=== PATIENT | female | born 1990 | race Caucasian/White ===

== ENCOUNTER 2016-06-30 11:13 | Outpatient (CLI) | payer OTHER ==
[~2016-06-30] VITALS: Ht 160 cm; Wt 51.3 kg
[~2016-06-30 11:13] MED LIST: FERGON324 MG PO; IBUPROFEN800 MG PO; MOTRIN800 MG PO; NORCO 7.5/321 TABLET PO; PHENERGAN25 MG PR; PRENATAL TABLE1 EAC3 PO; PROMETHAZINE HC25 M1 PO; VENTOLIN HFA18 GM IH; ZYRTEC10 M2 PO
[2016-06-30 13:02] LABS: HEMATOCRIT 29.5 % (36.0-46.0); MCH 30.3 PG (29.0-34.0); MCHC 34.9 G/DL (30.0-36.0); MCV 86.8 FL (83-99); MEAN PLAT.VOLUME 9.5 uM^3 (9.5-12.4); PLATELET COUNT 219 K/uL (156-360); RBC DIS.WIDTH-CV 13.2 % (11.8-14.6); RBC DIS.WIDTH-SD 41.5 % (39-53); WHITE BLOOD COUNT 14.4 K/uL (4.1-10.2)
[2016-06-30 13:04] LABS: CHLORIDE 104 mEq/L (99-109); POTASSIUM 3.5 mEq/L (3.7-5.4); SODIUM 133 mEq/L (136-147)
[2016-06-30 13:06] LABS: GLUCOSE 98 mg/dL (70-99)
[2016-06-30 13:07] LABS: ANION GAP 11 MEQ/L (2-14)
[2016-06-30 13:08] LABS: TOTAL BILIRUBIN 0.6 mg/dL (0.0-1.0)
[2016-06-30 13:09] LABS: ALKALINE PHOSPHATASE 102 IU/L (3-129)
[2016-06-30 13:10] LABS: GFR ESTIMATE (CALCULATED) > 59 mL/min/
[2016-06-30 13:11] LABS: UREA NITROGEN (BUN) 4 mg/dL (9-23)
[2016-06-30 13:35] LABS: QUANTITATIVE HCG 22663.6 MIU/ML
[2016-06-30 14:34] LABS: ADD MIUA? YES; BILIRUBIN NEGATIVE; BLOOD NEGATIVE; COLOR YELLOW ((YELLOW)); GLUCOSE (STRIP) NEGATIVE; KETONES NEGATIVE; LEUKOCYTES LARGE; NITRITE POSITIVE; PROTEIN (STRIP) 30
[2016-06-30 14:55] LABS: CASTS NONE SEEN /LPF; EPITHELIAL CELLS 4+ /HPF; MUCUS NONE SEEN /LPF
[2016-06-30 14:56] LABS: BACTERIA 4+ /HPF; RED BLOOD CELLS NONE SEEN /HPF (0-5); UCUL ADDED? YES; WHITE BLOOD CELLS TNTC /HPF (0-5)
[2016-06-30 17:05] VITALS: BP 98/56
[2016-06-30] MEDS ORDERED: ZYRTEC10 M2 PO (17:24)
[2016-06-30] MEDS ORDERED: VENTOLIN HFA18 GM IH (17:24)
[2016-06-30 18:45] LABS: AMPHETAMINES QUANT VALUE 0 NG/ML; BARBITUATES QUANT VALUE 0 NG/ML; BENZODIAZEPINES QUANT VALUE 0 NG/ML; BENZODIAZEPINES, URINE SCREEN Negative (200 ng/mL); OPIATES QUANTITATIVE VALUE 0 NG/ML; PHENCYCLIDINE QUANT VALUE 0 NG/ML
[2016-06-30 23:00] VITALS: BP 94/56
[2016-07-01 03:10] VITALS: BP 95/53
[2016-07-01 06:15] VITALS: BP 103/56
[2016-07-01 06:30] LABS: EOSINOPHIL (%) 0.4 % (0-5); EOSINOPHIL COUNT 0.1 K/uL (0-0.3); HEMATOCRIT 24.1 % (36.0-46.0); IMMATURE GRANULOCYTE (%) 1.8 % (0.0-0.7); IMMATURE GRANULOCYTE COUNT 0.3 K/uL; INSTRUMENT ABS NEUTROPHIL CT 11.4 K/uL; LYMPHOCYTE COUNT 1.2 K/uL (1.0-2.8); MCH 30.3 PG (29.0-34.0); MCV 88.9 FL (83-99); MEAN PLAT.VOLUME 9.8 uM^3 (9.5-12.4); MONOCYTE (%) 9.1 % (3-12); MONOCYTE COUNT 1.3 K/uL (0-0.8); NEUTROPHIL (%) 80.2 % (45-76); NEUTROPHIL COUNT 11.4 K/uL (1.8-6.4); PLATELET COUNT 178 K/uL (156-360); RBC DIS.WIDTH-CV 13.6 % (11.8-14.6); RBC DIS.WIDTH-SD 43.8 % (39-53); WHITE BLOOD COUNT 14.2 K/uL (4.1-10.2)
[2016-07-01 06:52] LABS: RED BLOOD COUNT 2.71 M/uL (3.80-5.20)
[2016-07-01 07:39] VITALS: BP 97/55
[2016-07-01 09:41] LABS: TREPONEMA ANTIBODY NEGATIVE (NEGATIVE)
[2016-07-01 13:43] LABS: Varicella IgM <=0.90 (<=0.90)
[2016-07-01 16:30] VITALS: BP 107/61
[2016-07-01 19:44] VITALS: BP 102/55
[2016-07-01 23:20] VITALS: BP 98/54
[2016-07-02 03:33] VITALS: BP 94/53
[2016-07-02 08:35] VITALS: BP 100/63
[2016-07-02] MEDS ORDERED: ZOFRAN4 MG PO (09:13)
[2016-07-02] MEDS ORDERED: MACROBID100 MG PO (09:13)
[2016-07-02] MEDS ORDERED: PERCOCET 5/31 TABLET PO (09:13)
[2016-07-02 10:55] LABS: HBSG INDEX 0.25
[2016-07-02 10:56] LABS: HIV-1/2 AB/AG COMBO Nonreactive
== END 2016-07-02 11:30 | disposition home or self-care (01) ==
LOC: LDRP-OP 11:13 → EME 11:13 → EDSTATUS 16:57 → 2WEST 16:58
PROVIDERS: Advanced Practice Midwife; Emergency Medicine
DX: O23.02 Infections of kidney in pregnancy, second trimester (principal); Z3A.26 26 weeks gestation of pregnancy
CPT/HCPCS: 59025; 76805; 80053; 80306 90; 81003; 84702; 85025; 85027; 86703; 86762; 86780; 86787 90; 86900; 86901; 87077; 87086; 87186; 87340; 99281; 99285; G0378; J0696; J2405; J7030; J7050; J7120

== ENCOUNTER 2016-08-14 13:20 | Outpatient (CLI) | payer OTHER ==
[~2016-08-14 13:20] MED LIST changes: +MACROBID100 MG PO; +PERCOCET 5/31 TABLET PO; +ZOFRAN4 MG PO
[2016-08-14 13:45] VITALS: BP 111/59
[2016-08-14 15:15] LABS: BASOPHIL COUNT 0.1 K/uL (0-0.1); EOSINOPHIL (%) 2.8 % (0-5); EOSINOPHIL COUNT 0.3 K/uL (0-0.3); HEMATOCRIT 30.8 % (36.0-46.0); IMMATURE GRANULOCYTE (%) 1.3 % (0.0-0.7); IMMATURE GRANULOCYTE COUNT 0.2 K/uL; INSTRUMENT ABS NEUTROPHIL CT 8.5 K/uL; LYMPHOCYTE COUNT 2.4 K/uL (1.0-2.8); MCH 29.7 PG (29.0-34.0); MCHC 34.4 G/DL (30.0-36.0); MCV 86.3 FL (83-99); MEAN PLAT.VOLUME 10.1 uM^3 (9.5-12.4); MONOCYTE (%) 4.8 % (3-12); MONOCYTE COUNT 0.6 K/uL (0-0.8); NEUTROPHIL (%) 70.7 % (45-76); NEUTROPHIL COUNT 8.5 K/uL (1.8-6.4); PLATELET COUNT 196 K/uL (156-360); RBC DIS.WIDTH-CV 14.3 % (11.8-14.6); RBC DIS.WIDTH-SD 45.2 % (39-53); RED BLOOD COUNT 3.57 M/uL (3.80-5.20); WHITE BLOOD COUNT 11.9 K/uL (4.1-10.2)
[2016-08-14 15:37] LABS: ADD MIUA? YES; BILIRUBIN NEGATIVE; BLOOD NEGATIVE; COLOR YELLOW ((YELLOW)); GLUCOSE (STRIP) NEGATIVE; KETONES NEGATIVE; LEUKOCYTES SMALL; NITRITE NEGATIVE; PROTEIN (STRIP) NEGATIVE; SPECIFIC GRAVITY 1.012 (1.000-1.030); UROBILINOGEN 0.2 MG/DL (0.2-1.0)
[2016-08-14 15:52] LABS: ALKALINE PHOSPHATASE 88 IU/L (3-129); ANION GAP 8 MEQ/L (2-14); CHLORIDE 108 MEQ/L (99-109); GFR ESTIMATE (CALCULATED) > 59 mL/min/; GLUCOSE 75 mg/dL (70-99); POTASSIUM 3.7 MEQ/L (3.7-5.4); SAMPLE HEMOLYSIS CHECK 0; SAMPLE ICTERIC CHECK 0; SAMPLE LIPEMIA CHECK 0; SODIUM 137 MEQ/L (136-147); TOTAL BILIRUBIN 0.3 MG/DL (0.0-1.0); UREA NITROGEN (BUN) 6 mg/dL (9-23)
[2016-08-14 16:01] LABS: BACTERIA 1+ /HPF; EPITHELIAL CELLS RARE /HPF; MUCUS TRACE /LPF; RED BLOOD CELLS 0-5 /HPF (0-5); UCUL ADDED? NO
[2016-08-14 16:20] LABS: AMPHETAMINE NEGATIVE (500 ng/mL); BARBITURATES NEGATIVE (200 ng/mL); BENZODIAZEPINES NEGATIVE (150 ng/mL); COCAINE NEGATIVE (150 ng/mL); INTERNAL CONTROLS VALID? YES; METHADONE NEGATIVE (200 ng/mL); METHAMPHETAMINE NEGATIVE (500 ng/mL); OPIATES (MORPHINE) NEGATIVE (100 ng/mL); OXYCODONE NEGATIVE (100 ng/mL); PHENCYCLIDINE NEGATIVE (25 ng/mL); PROPOXYPHENE NEGATIVE (300 ng/mL); THC CANNABINOIDS NEGATIVE (50 ng/mL); TRICYCLIC ANTIDEPRESSANTS NEGATIVE (300 ng/mL)
[2016-08-14 16:38] LABS: Estimated Average Glucose 71 mg/dL (70-123)
[2016-08-14 16:57] VITALS: BP 106/61
[2016-08-14 17:08] LABS: HEMOGLOBIN A1c (GLYCOHEMOGLOB) 4.1 % HGB (Below 5.7)
[2016-08-15 10:03] LABS: TREPONEMA ANTIBODY NEGATIVE (NEGATIVE)
[2016-08-16 12:52] LABS: CHLAMYDIA TRACHOMATIS NEGATIVE; NEISSERIA GONORRHOEAE NEGATIVE
== END 2016-08-14 17:18 | disposition home or self-care (01) ==
LOC: LDRP-OP 13:20 → 2WEST 13:21 → LDRP-OP 12-10 14:27
PROVIDERS: Advanced Practice Midwife
DX: O09.33 Supervision of pregnancy with insufficient antenatal care, third trimester (principal); Z3A.32 32 weeks gestation of pregnancy
CPT/HCPCS: 59025; 76805; 80053; 81003; 83036; 85025; 86780; 86900; 86901; 87086; 87491; 87591; G0378

== ENCOUNTER 2016-10-08 18:11 | Outpatient (CLI) | payer OTHER ==
[~2016-10-08] VITALS: Ht 160 cm; Wt 58.9 kg
[2016-10-08 18:30] VITALS: BP 113/66
[2016-10-08] MEDS ORDERED: PRENATAL TABLE1 EAC3 PO (18:55)
[2016-10-08 20:09] VITALS: BP 115/66
[2016-10-08 21:54] LABS: DRSB INTERNAL CONTROL PASS; PROBE CHECK PASS; SPECIMEN PROCESSING CONTROL PASS
[2016-10-09] MEDS ORDERED: PROMETHAZINE HC25 M1 PO (03:35)
== END 2016-10-08 21:05 | disposition home or self-care (01) ==
LOC: LDRP-OP 18:11 → 2WEST 18:12 → LDRP-OP 12-10 17:26
PROVIDERS: Advanced Practice Midwife
DX: O47.1 False labor at or after 37 completed weeks of gestation (principal); Z3A.40 40 weeks gestation of pregnancy; O09.33 Supervision of pregnancy with insufficient antenatal care, third trimester
CPT/HCPCS: 59025; 87081; 87653; C1755; G0378

== ENCOUNTER 2016-10-09 01:42 | Inpatient (IN) | payer OTHER ==
[2016-10-09] VITALS (19 sets, daily range): BP systolic 93–154; BP diastolic 54–76
[~2016-10-09] VITALS: Ht 160 cm; Wt 54.4 kg
[2016-10-09 02:58] LABS: EOSINOPHIL (%) 0.5 % (0-5); EOSINOPHIL COUNT 0.1 K/uL (0-0.3); HEMATOCRIT 31.4 % (36.0-46.0); IMMATURE GRANULOCYTE COUNT 0.1 K/uL; INSTRUMENT ABS NEUTROPHIL CT 9.6 K/uL; LYMPHOCYTE COUNT 1.9 K/uL (1.0-2.8); MCH 25.6 PG (29.0-34.0); MCHC 32.5 G/DL (30.0-36.0); MCV 78.9 FL (83-99); MEAN PLAT.VOLUME 11.2 uM^3 (9.5-12.4); MONOCYTE (%) 5.3 % (3-12); MONOCYTE COUNT 0.7 K/uL (0-0.8); NEUTROPHIL (%) 77.6 % (45-76); NEUTROPHIL COUNT 9.6 K/uL (1.8-6.4); PLATELET COUNT 188 K/uL (156-360); RBC DIS.WIDTH-CV 14.7 % (11.8-14.6); RBC DIS.WIDTH-SD 42.3 % (39-53); RED BLOOD COUNT 3.98 M/uL (3.80-5.20); WHITE BLOOD COUNT 12.4 K/uL (4.1-10.2)
[2016-10-09] MEDS ORDERED: PROMETHAZINE HC25 M1 PO (03:35)
[2016-10-09 05:10] LABS: AMPHETAMINE NEGATIVE (500 ng/mL); BARBITURATES NEGATIVE (200 ng/mL); BENZODIAZEPINES NEGATIVE (150 ng/mL); COCAINE NEGATIVE (150 ng/mL); INTERNAL CONTROLS VALID? YES; METHADONE NEGATIVE (200 ng/mL); METHAMPHETAMINE NEGATIVE (500 ng/mL); OPIATES (MORPHINE) NEGATIVE (100 ng/mL); OXYCODONE NEGATIVE (100 ng/mL); PHENCYCLIDINE NEGATIVE (25 ng/mL); PROPOXYPHENE NEGATIVE (300 ng/mL); THC CANNABINOIDS NEGATIVE (50 ng/mL); TRICYCLIC ANTIDEPRESSANTS NEGATIVE (300 ng/mL)
[2016-10-10 07:57] VITALS: BP 115/65
[2016-10-10 08:31] LABS: BASOPHIL COUNT 0.1 K/uL (0-0.1); EOSINOPHIL (%) 1.4 % (0-5); EOSINOPHIL COUNT 0.2 K/uL (0-0.3); HEMATOCRIT 30.6 % (36.0-46.0); IMMATURE GRANULOCYTE COUNT 0.1 K/uL; INSTRUMENT ABS NEUTROPHIL CT 7.3 K/uL; LYMPHOCYTE COUNT 4.2 K/uL (1.0-2.8); MCH 25.6 PG (29.0-34.0); MCHC 31.7 G/DL (30.0-36.0); MCV 80.7 FL (83-99); MEAN PLAT.VOLUME 10.9 uM^3 (9.5-12.4); MONOCYTE (%) 4.1 % (3-12); MONOCYTE COUNT 0.5 K/uL (0-0.8); NEUTROPHIL (%) 59.1 % (45-76); NEUTROPHIL COUNT 7.3 K/uL (1.8-6.4); PLATELET COUNT 170 K/uL (156-360); RBC DIS.WIDTH-CV 14.7 % (11.8-14.6); RBC DIS.WIDTH-SD 43.2 % (39-53); RED BLOOD COUNT 3.79 M/uL (3.80-5.20); WHITE BLOOD COUNT 12.3 K/uL (4.1-10.2)
[2016-10-10 14:45] VITALS: BP 107/65
[2016-10-10 23:05] VITALS: BP 116/72
[2016-10-11 08:07] VITALS: BP 109/67
[2016-10-11] MEDS ORDERED: IBUPROFEN800 MG PO (11:01)
[2016-10-11] MEDS ORDERED: FERROUS GLUCON324 MG PO (11:02)
[2016-10-11 15:38] VITALS: BP 108/65
== END 2016-10-11 18:20 | disposition home or self-care (01) | DRG 775 ==
LOC: LDRP-OP 01:42 → 2WEST 01:43 → LDRP-OP 11-10 21:12
PROVIDERS: Advanced Practice Midwife
PROC: 10E0XZZ Delivery of Products of Conception, External Approach (ICD-10-PCS; principal; 2016-10-09)
PROC: 10907ZC Drainage of Amniotic Fluid, Therapeutic from Products of Conception, Via Natural or Artificial Opening (ICD-10-PCS; principal; 2016-10-09)
PROC: 3E0R3CZ (ICD-10-PCS; principal; 2016-10-09)
PROC: 00HU33Z Insertion of Infusion Device into Spinal Canal, Percutaneous Approach (ICD-10-PCS; principal; 2016-10-09)
DX: O99.340 Other mental disorders complicating pregnancy, unspecified trimester (principal); F32.9 Major depressive disorder, single episode, unspecified; D62 Acute posthemorrhagic anemia; O99.02 Anemia complicating childbirth; Z37.0 Single live birth; Z3A.40 40 weeks gestation of pregnancy
CPT/HCPCS: 83030; 85025; 86870; 86900; 86901; 86905; 99202; C1755; J2790; J3010; J7120

== ENCOUNTER 2017-08-03 20:47 | Emergency (ER) | payer OTHER ==
[~2017-08-03] VITALS: Ht 160 cm; Wt 54.2 kg
[~2017-08-03 20:47] MED LIST changes: +FERROUS GLUCON324 MG PO
[2017-08-03] MEDS ORDERED: NAPROXEN500 MG PO (21:28)
[2017-08-03] MEDS ORDERED: VALIUM2 MG PO (21:28)
[2017-08-03 21:51] VITALS: BP 108/73
== END 2017-08-03 21:51 | disposition home or self-care (01) ==
LOC: EME 20:47
DX: M62.838 Other muscle spasm (principal); M54.2 Cervicalgia
CPT/HCPCS: 99281; 99284; J1885